=== PATIENT | female | born 1985 | race Two or more races ===

== ENCOUNTER 2016-07-08 23:15 | Inpatient (IN) | payer OTHER, MEDICAID ==
[2016-07-08 23:32] VITALS: BMI 32.5
[2016-07-08] MEDS ORDERED: LACTATED RINGERS 1,000 ML IV PRN (23:52)
[2016-07-08] MEDS ORDERED: PENICILLIN G POTASSIUM 5 MMU in NS 0.9% (MINI-BAG PLUS) 100 ML IV ONE (23:55)
[2016-07-09] MEDS ORDERED: OXYTOCIN 10 UNITS/ML VIAL ONE (00:02)
[2016-07-09] MEDS ORDERED: LIDOCAINE 1% (PRES FREE) 30 ML VIAL ONE (00:02)
[2016-07-09] MEDS ORDERED: PUMP TUBING ONE (00:02)
[2016-07-09] MEDS ORDERED: MINERAL OIL 25 ML BOT ONE (00:02)
[2016-07-09] MEDS ORDERED: IV START KIT ONE (00:02)
[2016-07-09] MEDS ORDERED: LIDOCAINE Viscous 2% 15 ML UDCUP ONE (00:02)
[2016-07-09] MEDS ORDERED: OXYTOCIN IN LR 0 ML IV ONE (00:03)
[2016-07-09] MEDS ORDERED: PENICILLIN G 3 MIL UNIT PREMIX 0 ML IV ONE (00:12)
[2016-07-09] MEDS ORDERED: PENICILLIN G POTASSIUM 5 MMU VIAL ONE ×2 (00:15→00:19)
[2016-07-09] MEDS: LACTATED RINGERS 1,000 ML IV SCH ×6 (00:15→20:08)
[2016-07-09] MEDS ORDERED: NS 0.9% (MINI-BAG PLUS) 100 ML IV ONE ×2 (00:15→00:19)
[2016-07-09 00:25] LABS: HEMATOCRIT 38.7 % (37.0-47.0); MEAN CELL VOLUME 84.5 fl (81.0-99.0); MEAN CORPUSCULAR HEMOGLOBIN 28.4 pg (27.0-31.0); MEAN CORPUSCULAR HGB CONC 33.6 g/dl (33.0-37.0); RED CELL DISTRIBUTION WIDTH 15.3 % (11.5-14.5)
[2016-07-09] MEDS ORDERED: EPIDURAL PUMP SET ONE (00:35)
[2016-07-09] MEDS ORDERED: FENTANYL/ROPIVACAINE EPIDURAL 250 ML EP ONE (00:36)
[2016-07-09] MEDS ORDERED: ROPIVACAINE 0.5% 30 ML VIAL ONE (01:13)
[2016-07-09] MEDS ORDERED: EPIDURAL PROCEDURE TRAY ONE (01:13)
[2016-07-09] MEDS ORDERED: ONDANSETRON 4 MG/2ML 2 ML VIAL IV PRN (01:34)
[2016-07-09] MEDS ORDERED: METOCLOPRAMIDE HCL 5 MG/ML 2ML VIAL IV PRN (01:34)
[2016-07-09] MEDS ORDERED: LACTATED RINGERS 500 ML IV PRN (01:34)
[2016-07-09] MEDS ORDERED: NALBUPHINE HCL 20 MG/ML AMP IV PRN (01:34)
[2016-07-09] MEDS ORDERED: SODIUM CHLORIDE 0.9% 500 ML IV PRN (01:34)
[2016-07-09] MEDS ORDERED: DIPHENHYDRAMINE HCL 50 MG/1 ML VIAL IV PRN (01:34)
[2016-07-09] MEDS ORDERED: EPHEDRINE SULFATE 50 MG/ML 1ML VIAL IV PRN (01:34)
[2016-07-09] MEDS ORDERED: NALOXONE HCL 0.4 MG/ML VIAL IV PRN (01:34)
[2016-07-09] MEDS: FENTANYL/ROPIVACAINE EPIDURAL 250 ML EP SCH ×2 (01:45→19:44)
[2016-07-09] MEDS ORDERED: PENICILLIN G 3 MIL UNIT PREMIX 50 ML IV ONE ×2 (04:34→08:13)
[2016-07-09] MEDS: PENICILLIN G 3 MIL UNIT PREMIX 3 MMU in Premix (D5W) 50 ml 1 EACH IV SCH ×2 (04:35→08:16)
[2016-07-09] MEDS ORDERED: MINERAL OIL 25 ML BOT TP ONE (09:25)
[2016-07-09] MEDS ORDERED: ACETAMINOPHEN 325 MG TABLET PO PRN (10:44)
[2016-07-09] MEDS ORDERED: DIPHTH,PERTUSS(ACELL),TET VAC 0.5 ML VIAL IM V ONE (10:44)
[2016-07-09] MEDS ORDERED: BENZOCAINE/MENTHOL 60 APPLIC/BOT TP PRN (10:44)
[2016-07-09] MEDS ORDERED: CALCIUM CARBONATE 500 MG TAB.CHEW PO PRN (10:44)
--- NOTE | 2016-07-09 11:10 | PCMDEL ---
Delivery Note - Labor 1st stage (hr/min):: 9 hrs 56 min 2nd stage (hr/min):: 2 hrs 24 min 3rd stage (hr/min):: 0 hrs 11 min Total (hr/min):: 12 hrs 31 min - Delivery Delivery (Date): 07/09/16 Delivery (Time): 09:20 Gender: Male Presentation: Cephalic Position: OA Umbilical Cord: 3 Vessel Delayed Cord Clamping:: 2-3 min 1 Minute Total: 9 5 Minute Total: 9 Placenta:: Chuck, intact EBL:: 250 Perineum:: 1st degree perineal lac Suture:: 3-0 vicryl 1 stitch, 4 0 vicryl 1 stitch Anesthesia/Meds:: epidural Length ROM:: 3 hours 14 min Comments:: Well controlled after prolonged prodromal labor followed by relatively normal active phase. Cord looped over anterior shoulder. Baby delivered and given directly to mother. Cord clamped after >2.5 min. Cut by father of baby. Spontaneous delivery chuck placenta Intact and complete, 3 vessel cord. Excellent bonding. Repair of 1st degree perineal lac without additional anesthesia due to functioning epidural. Successful .
--- NOTE | 2016-07-09 11:12 | PCMAN ---
OB Admission Note - History : 2 Term: 1 : 0 Abortions (S&E): 0 Livin EDC:: 07/08/16 Gestational Age (weeks): 40 Days (#/7): 0 Admit Cervical Dilation:: 6 Admit Cervical Effacement (%):: 100 Admit Presentaton:: vertex Membrane Status: Bulging Labor Onset (Date): 07/08/16 Labor Onset (Time): 21:00 Contractions: Yes Contraction Frequency:: q 2-4 Heart Rate:: 145 Status:: category 1 EFW:: 8# Summary of Course:: Had early care at [place]. Dates by LMP and early US. Transferred to [facility] at 32 weeks for [place] delivery. course uncomplicated except for positive GBS status. Expressed strong desire for both at [place] and with us. Began miky 07/07 with extended labor check last evening and again sharepoint architect of 07/08. Was sent home with therapeutic rest at 1000 today and called with contractions late this afternoon. Sent to office for labor check and evaluation and treatment of position. Gradually through the evening, the contractions strengthened until she came in having contractions every 2-4 minutes with coupling. Has significant back pain. First was for breech presentation with mild oligohydramnios. - Labs Blood Type: A (+) positive Hct/Hgb:: 11.8 Rubella Status: Immune GBS Status: Positive Other Labs:: 1 hr 146, 3 hr WNL. - Physical Exam Psych/Mental Status: Mood/Affect Appropriate Lungs: Clear to Auscultation Bilaterally Cardiovascular: Regular Rate and Rhythm Genitourinary: Normal Female Genitalia - Problems (1) Active labor at term Status: Acute Code: [id number] Assessment/Plan: P: Admit for active labor IV and GBS prophylaxis Pain medication prn (2) Previous delivery affecting Status: Acute Code: O34.219 Assessment/Plan: P: OR crew and OB physician called in IV started and labs drawn Continuous monitoring Anticipate successful .
[2016-07-09] MEDS: IBUPROFEN 800 MG TABLET PO SCH ×3 (11:48→23:52)
[2016-07-09] MEDS: HYDROCODONE/ACETAMINOPHEN 5/325MG TABLET PO PRN ×3 (15:31→23:52)
[2016-07-09] MEDS: LANOLIN 50 APPLIC/7G TUBE TP PRN (23:54)
[2016-07-10] MEDS: HYDROCODONE/ACETAMINOPHEN 5/325MG TABLET PO PRN (04:36)
[2016-07-10] MEDS: IBUPROFEN 800 MG TABLET PO SCH ×3 (06:20→20:48)
[2016-07-10] MEDS ORDERED: SIMETHICONE 80 MG TAB.CHEW PO PRN (06:26)
[2016-07-10] MEDS: PRENATAL VIT/FE FUMARATE/FA 1 TABLET PO SCH ×2 (07:47→13:49)
[2016-07-10] MEDS: SIMETHICONE 80 MG TAB.CHEW PO PRN (07:47)
[2016-07-10] MEDS ORDERED: NEOMYCIN TP PRN (10:40)
[2016-07-10] MEDS ORDERED: POLYMYXIN B TP PRN (10:40)
[2016-07-10] MEDS ORDERED: BACITRACIN TP PRN (10:40)
[2016-07-10] MEDS ORDERED: HYDROCORTISONE 1% CREAM 20 APPLIC/30 G TUBE PR PRN (10:42)
--- NOTE | 2016-07-10 11:25 | PDOC44 ---
- Subjective Day: 1 Jane feels her went well. She is having some gas pain. is going well, but her nipples are sore and blistered. Infant has a tight jaw and does not open widely for a deep latch. Her pain is well-controlled with current medications. requested cortisol and ploysporin creams for nipples. Reports light lochia and that her arms and back are sore from the work of pushing. Says that she did feel somewhat depressed after her first baby. Desires DC to home tomorrow to be able to have additional support and work with baby to open jaw wider. Reports Flatus, Reports Pain Tolerable, Reports , Reports Lochia Light, Reports Tolerating Regular Diet - Objective Temp Pulse Resp BP Pulse Ox 97.9 F 82 20 108/66 07/10/16 09:00 07/10/16 09:00 07/10/16 09:00 07/10/16 09:00 Current Medications Generic Name Dose Route Start Last Admin Trade Name Freq PRN Reason Stop Dose Admin Acetaminophen 325 - 650 mg 07/09/16 10:44 Tylenol PO Q4H PRN Pain (Mild) Acetaminophen/Hydrocodone Bitart 1 - 2 tab 07/09/16 10:44 07/10/16 04:36 [place] 5/325 PO 2 tab Q4H PRN Administration Pain (Moderate) Benzocaine/Menthol 1 applic 07/09/16 10:44 07/09/16 23:55 Dermoplast TP 1 bot PRN PRN Administration Patient Comfort Calcium Carbonate/Glycine 500 - 1,000 mg 07/09/16 10:44 Tums PO BID PRN Indigestion Docusate Sodium 100 mg 07/10/16 09:15 Colace PO BID GODFREY Emollient Ointment 1 applic 07/09/16 10:44 07/09/16 23:54 [id number] TP 1 tube PRN PRN Administration sore nipples Hydrocortisone 1 applic 07/10/16 10:42 Cortaid ND Q3-4H PRN nipple pain and blistering Ibuprofen 800 mg 07/09/16 11:00 07/10/16 06:20 Motrin PO 800 mg Q6H GODFREY Administration Multivi/Iron Carb/Fe Sulf/FA/Prenat 1 tab 07/10/16 09:00 07/10/16 07:47 Plus PO 1 tab DAILY GODFREY Administration Neomycin/Polymyxin/Bacitracin 1 applic 07/10/16 10:40 Neosporin Ointment TP Q3-4H PRN nipple pain and blistering Simethicone 80 mg 07/10/16 06:26 07/10/16 07:47 Mylicon PO 80 mg TID PRN Administration Gas Sodium Chloride 10 ml 07/09/16 17:00 07/10/16 06:17 Normal Saline 10ml Flush IV Not Given Q8HR GODFREY Sodium Chloride 10 ml 07/09/16 10:44 Normal Saline 10ml Flush IV PRN PRN IV Flush - Physical Exam General: Afebrile Psych/Mental Status: Mood/Affect Appropriate, Judgment/Insight Intact, Bonding Well Neurological: Grossly Intact, Alert, Oriented x 4 HEENT: Atraumatic Lungs: Clear to Auscultation Bilaterally, Normal Air Movement Cardiovascular: Regular Rate and Rhythm, Normal S1, Normal S2 Breast: Soft, Nipples Intact, Other (blistered and creases) Genitourinary: Normal Female Genitalia Lochia: Light Rectal Exam: Deferred Extremities: Full ROM Skin: Normal Color - Problems:Assessment/Plan (1) Previous delivery affecting Status: Chronic Assessment/Plan: P: OR crew and OB physician called in IV started and labs drawn Continuous monitoring Anticipate successful . (2) care following vaginal delivery Status: Acute Assessment/Plan: A: delivered at 40w0d successful normal recovery with tight jaw causing blistered nipples lochia appropriate pain controlled with current medications Desires to DC to home tomorrow for continues support P: DC to home are tomorrow after receiving additional support to help ease pain of . Stool softener since she is taking narcotics Simethicone for gas pain; polysporin/hydrocortisone cream to prevent nipple infection. To be used sparingly after each feed. Plans condoms for PP contraception Discussed warning signs of mood and patient knows to seek additional care if s/ s PP depression develop.
[2016-07-10] MEDS: DOCUSATE SODIUM 100 MG CAPSULE PO SCH ×2 (13:47→20:47)
[2016-07-11] MEDS: IBUPROFEN 800 MG TABLET PO SCH ×3 (01:11→08:05)
[2016-07-11] MEDS: DOCUSATE SODIUM 100 MG CAPSULE PO SCH (08:05)
[2016-07-11] MEDS: PRENATAL VIT/FE FUMARATE/FA 1 TABLET PO SCH (08:05)
[2016-07-11] MEDS: SIMETHICONE 80 MG TAB.CHEW PO PRN (08:10)
[2016-07-11 08:21] VITALS: BP 121/66
[2016-07-11] MEDS: LANOLIN 50 APPLIC/7G TUBE TP PRN (12:15)
--- NOTE | 2016-07-11 16:27 | PDOC39B ---
Hospital Course: ADMIT DATE: 07/08/16 DISCHARGE DATE: 07/11/16 ADMISSION DIAGNOSES: Active Labor PROCEDURES: HISTORY OF PRESENT ILLNESS: 31 year old G2 T1 L1 at 40 weeks 1 days presenting with active labor. HOSPITAL COURSE: The patient is ambulating and voiding without difficulty. Didn' t sleep well as infant was cluster feeding through most of the night. Pain well managed with Ibuprofen and [place]; would like Rx for both going home. getting easier. Some tenderness with latch but infant latching deeper. Good support going home. Reports hx of depression with daughter but attributes primarily to contextual factors and adjustment with first baby. Planning condoms for MOBC; used IUD in the past and did not like the side effects. By day of discharge the patient is stable, well and ready to go home. - Physical Exam Vital Signs: Temp Pulse Resp BP Pulse Ox 98.1 F 77 18 121/66 07/11/16 08:00 07/11/16 08:00 07/11/16 08:00 07/11/16 08:00 General: Afebrile, No Acute Distress Psych/Mental Status: Mood/Affect Appropriate, Judgment/Insight Intact, Bonding Well Neurological: Grossly Intact, Alert, Oriented x 4 Breast: Soft, Skin intact, Tenderness, Nipples Intact, No Erythema Fundus: Firm, Midline, Below Umbilicus Genitourinary: Normal Female Genitalia, No Edema Lochia: Light Extremities: Full ROM, Edema (trace) - Discharge Plan Condition: Good Disposition: Home Instruction Forms: Vaginal Discharge Instructions Prescriptions: Docusate Sodium [COLACE 100 MG CAPSULE (SHF)] 100 mg PO DAILY PRN #30 capsule PRN Reason: Comfort Ibuprofen [Motrin] 800 mg PO Q6H PRN #60 tablet PRN Reason: Pain Hydrocodone Bit/Acetaminophen [[place] 5/325] 1 - 2 tab PO Q4H PRN #10 tablet PRN Reason: Pain Simethicone 80 mg PO TID #20 tab.chew Follow-Up: Jocelynn Browning CNM [Certified Nurse [employer] Exchange Service Advisor] - 07/28/16 3:20 pm
[2016-07-11] MEDS ORDERED: IV START KIT ONE (19:49)
== END 2016-07-11 13:05 | disposition home or self-care (01) | DRG 775 ==
LOC: FBC 23:15 → FBCOUT 23:15 → FBC 23:49
PROVIDERS: ADMIT Advanced Practice Midwife; ATTEND Advanced Practice Midwife
PROC: 0HQ9XZZ Repair Perineum Skin, External Approach (ICD-10-PCS; principal; 2016-07-09)
PROC: 10E0XZZ Delivery of Products of Conception, External Approach (ICD-10-PCS; 2016-07-09)
DX: O70.0 First degree perineal laceration during delivery (principal); O99.824 Streptococcus B carrier state complicating childbirth; O34.211 Maternal care for low transverse scar from previous cesarean delivery; Z3A.40 40 weeks gestation of pregnancy; Z37.0 Single live birth